=== PATIENT | female | born 1940 | race Hispanic/Latino ===

== ENCOUNTER 2019-01-13 11:42 | Emergency (ER) | payer MEDICARE ==
[2019-01-13] MEDS ORDERED: ACETAMINOPHEN-CAFF-BUTALBITAL 1 EA TAB PO ONE (12:25)
--- NOTE | 2019-01-13 12:27 | ED.PDOC ---
History of Present Illness - General Chief Complaint: Lower Extremity Injury Stated Complaint: right thigh pain/spasms Time Seen by Provider: 01/13/19 12:25 Source: patient Exam Limitations: no limitations - History of Present Illness Initial Comments: the patient is a 78-year-old female presenting to emergency room secondary to continued pain and bilateral lower extremities and several joints. The patient's pain started 3 weeks ago when she lost her pain management doctor due to a revocation of the [employer] license. Since then she has had significant pain in bilateral lower extremities. She was seen twice at [facility] and had multiple x-rays performed as well as some steroid injections performed. She has been placed on tramadol, prednisone, Skelaxin and Motrin which have failed to control her pain adequately. She missed an appointment with a new primary care doctor to write her hydrocodone on Tuesday. She does report that she already takes some Neurontin 300 mg twice daily. She does have a history of some sciatica symptoms do not really appear consistent with sciatica. No recent injury. No inciting event. Timing/Duration: other - 3 weeks Severity: moderate Improving Factors: nothing Worsening Factors: nothing Associated Symptoms: denies symptoms Allergies/Adverse Reactions: Allergies NO KNOWN ALLERGY Allergy (Verified 01/13/19 11:54) Home Medications: Ambulatory Orders Uvcpwsrmuzbao-Hfza-Krotaoyxmf [Fioricet] 1 ea PO Q8H PRN #30 tab 01/13/19 Gabapentin 300 mg PO Q6HRS #30 cap 01/13/19 Review of Systems - Review of Systems Constitutional: States: no symptoms reported EENTM: States: no symptoms reported Respiratory: States: no symptoms reported Cardiology: States: no symptoms reported Gastrointestinal/Abdominal: States: no symptoms reported Genitourinary: States: no symptoms reported Musculoskeletal: States: see HPI Skin: States: no symptoms reported Neurological: States: see HPI Endocrine: States: no symptoms reported All other Systems: No Change from Baseline Past Medical History (General) - Patient Medical History Hx Seizures: No Hx Stroke: No Hx Dementia: No Hx Cardiac Disorders: Yes Hx Congestive Heart Failure: No Hx Pacemaker: No Hx Diabetes: No Hx Gastroesophageal Reflux: No Surgical History: coronary bypass surgery, other - Vaccination History Hx Influenza Vaccination: Yes - 09/2019 Hx Pneumococcal Vaccination: No Family Medical History - Family History Mother Family History: Unknown Physical Exam - Physical Exam General Appearance: Alert, No apparent distress Eye Exam: bilateral normal Ears, Nose, Throat: hearing grossly normal, normal ENT inspection, normal pharynx Neck: full range of motion, supple Respiratory: no respiratory distress, no accessory muscle use Cardiovascular/Chest: normal peripheral pulses, no edema, other - regular rate Peripheral Pulses: radial,right: 2+, radial,left: 2+, dorsalis pedis,right: 2+, dorsalis pedis,left: 2+ Gastrointestinal/Abdominal: non tender, soft Rectal Exam: deferred Extremity: normal range of motion, no pedal edema, no calf tenderness, normal capillary refill, other - soreness to palpation over the knees and hips bilaterally. Mild discomfort palpation of the thigh muscles bilaterally. No gross deformity. 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 The patient has been unable to obtain her hydrocodone over the last 3 weeks due to a loss of her physician. She is to follow-up with her new primary care doctor early next week to get set up for continued pain management. For now I'm going to have the patient increase her Neurontin to 300 mg 4 times a day. Additionally she will be written for some Fioricet to try in the place of tramadol to see if she gets better pain relief. X-rays have already been performed at [facility] recently so I do not see any benefit in repeating these. For now I'm recommending that she hold her simvastatin for the next couple of weeks. She is to increase her fluid intake. Topical heat may also help reduce symptoms. ER warnings were given. Departure - Departure Clinical Impression: Chronic pain Qualifiers: Chronic pain type: chronic pain syndrome Qualified Code(s): G89.4 - Chronic pain syndrome Disposition: Discharge to Home or Self Care Condition: Fair Departure Forms: ED Discharge - Pt. Copy, Patient Portal Self Enrollment Diet: regular diet Activity: increase activity as tolerated Referrals: Erik Pressley MD [Primary Care Provider] - 1-2 Days Prescriptions: Gabapentin 300 mg PO Q6HRS #30 cap Sbhrkztpxjtpe-Ibaj-Qhnlmpdvst [Fioricet] 1 ea PO Q8H PRN #30 tab PRN Reason: Pain Home Medications: Ambulatory Orders Jhzxzesjbwstl-Qxgm-Voomgykvhd [Fioricet] 1 ea PO Q8H PRN #30 tab 01/13/19 Gabapentin 300 mg PO Q6HRS #30 cap 01/13/19 Additional Instructions: the patient is a 78-year-old female presenting to the emergency room secondary to uncontrolled chronic pain. The patient has been unable to obtain her hydrocodone over the last 3 weeks due to a loss of her physician. She is to follow-up with her new primary care doctor early next week to get set up for continued pain management. For now I'm going to have the patient increase her Neurontin to 300 mg 4 times a day. Additionally she will be written for some Fioricet to try in the place of tramadol to see if she gets better pain relief. X-rays have already been performed at [facility] recently so I do not see any benefit in repeating these. For now I'm recommending that she hold her si mvastatin for the next couple of weeks. She is to increase her fluid intake. Topical heat may also help reduce symptoms. ER warnings were given.
[2019-01-13 13:04] VITALS: BP 144/77; TEMP 97.5; O2SAT 96
== END 2019-01-13 13:06 | disposition home or self-care (01) ==
LOC: ER 11:42
DX: G89.4 Chronic pain syndrome (principal); M79.651 Pain in right thigh; M79.652 Pain in left thigh; M25.561 Pain in right knee; M25.562 Pain in left knee; M25.551 Pain in right hip; M25.552 Pain in left hip; I51.9 Heart disease, unspecified; Z79.899 Other long term (current) drug therapy; Z98.1 Arthrodesis status

== ENCOUNTER → 2019-02-16 | Outpatient (CLI) | payer MEDICARE ==
--- NOTE | 2019-02-18 13:35 | RAD ---
EXAM: Hip,Right 2 Views CLINICAL HISTORY: M25.561, M25.551 COMPARISON STUDY: None TECHNICAL: AP and lateral x-rays of the right hip FINDINGS: There is diffuse demineralization. There is no fracture or dislocation. Mild to moderate degenerative changes are seen at the right sacroiliac joint. The right hip shows no joint space loss or significant degenerative process. IMPRESSION: 1. 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 2. No fracture or dislocation. 3. Osteopenia. Electronically signed by: Juma Tatum MD 02/18/2019 1:32 PM CDT
--- NOTE | 2019-02-18 13:36 | RAD ---
EXAM: Knee,Right Complete CLINICAL HISTORY: M25.561, M25.551 COMPARISON STUDY: None. TECHNICAL: 4 views of the knee. FINDINGS: Views of the knee demonstrate no fracture or dislocation. There is no acute bone abnormality. There is no visible effusion. There is mild narrowing of the medial compartment and very small osteophyte along the medial tibial margin. The remaining joint spaces are maintained without degenerative changes. IMPRESSION: 1. Mild joint space loss of the medial compartment. 2. No severe osteoarthritic changes. Electronically signed by: Juma Tatum MD 02/18/2019 1:33 PM CDT
== END ==
LOC: RAD 08:35
PROVIDERS: ATTEND Orthopaedic Surgery
DX: M25.561 Pain in right knee (principal); M25.551 Pain in right hip; M85.851 Other specified disorders of bone density and structure, right thigh